=== PATIENT | female | born 2000 | race Caucasian/White ===

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

== ENCOUNTER 2019-06-23 19:26 | Emergency (ER) | payer SELFPAY ==
[~2019-06-23] VITALS: Ht 157.5 cm; Wt 156.0 kg
[2019-06-23] MEDS ORDERED: DEXAMETHASONE 4MG/ML 1ML VIAL IM ONE (22:45)
[2019-06-23] MEDS ORDERED: KETOROLAC 30MG/ML VIAL IM ONE (22:45)
[2019-06-23 22:53] VITALS: BP 124/76
== END 2019-06-23 23:29 | disposition home or self-care (01) ==
LOC: ER 19:26
DX: H66.93 Otitis media, unspecified, bilateral (principal); J02.9 Acute pharyngitis, unspecified; R09.89 Other specified symptoms and signs involving the circulatory and respiratory systems; R05 Cough; R59.0 Localized enlarged lymph nodes; J35.1 Hypertrophy of tonsils; Z98.890 Other specified postprocedural states
CPT/HCPCS: 81025; 96372; 99284; J1100; J1885

== ENCOUNTER 2019-06-25 05:25 | Emergency (ER) | payer SELFPAY ==
[~2019-06-25] VITALS: Ht 160 cm; Wt 150.0 kg
[2019-06-25 05:38] VITALS: BP 152/99
== END 2019-06-25 06:25 | disposition home or self-care (01) ==
LOC: ER 05:25
DX: T63.301A Toxic effect of unspecified spider venom, accidental (unintentional), initial encounter (principal); W57.XXXA Bitten or stung by nonvenomous insect and other nonvenomous arthropods, initial encounter; Y93.89 Activity, other specified; Y92.89 Other specified places as the place of occurrence of the external cause; Y99.8 Other external cause status
CPT/HCPCS: 99281